=== PATIENT | male | born 1955 | race Caucasian/White ===

== ENCOUNTER 2020-05-02 12:31 | Emergency (ER) | payer OTHER, MEDICARE ==
[~2020-05-02] VITALS: Ht 162.6 cm; Wt 58.8 kg
[~2020-05-02 12:31] MED LIST: ONDA8TAB9 PO; PANT-47 PO
[2020-05-02 12:44] VITALS: BP 114/78
[2020-05-02] MEDS ORDERED: LIDOcaine 1% W/epiNEPHrine 1:200,000 10ml vial IJ ONE (12:50)
== END 2020-05-02 16:13 | disposition home or self-care (01) ==
LOC: ER 12:32
DX: S61.412A Laceration without foreign body of left hand, initial encounter (principal); I25.10 Atherosclerotic heart disease of native coronary artery without angina pectoris; E78.00 Pure hypercholesterolemia, unspecified; I10 Essential (primary) hypertension; Z95.0 Presence of cardiac pacemaker; Z95.5 Presence of coronary angioplasty implant and graft; Z88.0 Allergy status to penicillin; Z88.8 Allergy status to other drugs, medicaments and biological substances; Z79.899 Other long term (current) drug therapy; W22.8XXA Striking against or struck by other objects, initial encounter; Y93.89 Activity, other specified; Y92.89 Other specified places as the place of occurrence of the external cause; Y99.8 Other external cause status
CPT/HCPCS: 12002; 99282

== ENCOUNTER 2021-02-19 05:34 | Day surgery (SDC) | payer OTHER ==
[2021-02-10 14:32] LABS: BASOPHILS % (AUTO) 0.3 % (0-1); EOSINOPHILS # (AUTO) 0.2 X10'3 (0-0.9); EOSINOPHILS % (AUTO) 2.6 % (0-6); LYMPHOCYTES # (AUTO) 1.7 X10'3 (1.1-4.8); LYMPHOCYTES % (AUTO) 18.1 % (21-51); MEAN CORPUSCULAR HEMOGLOBIN 30.2 PG (27.0-31.0); MEAN CORPUSCULAR HGB CONC 33.8 g/dL (33.0-36.5); MEAN CORPUSCULAR VOLUME 89.5 FL (78-98); MEAN PLATELET VOLUME 7.6 FL (7.4-10.4); MONOCYTES # (AUTO) 0.6 X10'3 (0-0.9); PRE OP HEMATOCRIT 33.4 % (42.0-52.0); PRE OP HEMOGLOBIN 11.3 g/dL (14.0-17.9); PRE OP PLATELET COUNT 528 X10'3 (140-440); RED BLOOD COUNT 3.74 X10'6 (4.70-6.10); RED CELL DISTRIBUTION WIDTH 15.7 % (11.5-14.5)
[2021-02-10 14:43] LABS: ALBUMIN 2.5 G/DL (3.4-5.0); ALBUMIN/GLOBULIN RATIO 0.5 (1.1-1.5); ALKALINE PHOSPHATASE 108 IU/L (46-116); BLOOD UREA NITROGEN 9 MG/DL (7-18); BUN/CREATININE RATIO 8.7 (5.4-32.0); CALCIUM 8.9 MG/DL (8.5-10.1); CHLORIDE 102 MMOL/L (99-107); CREATININE 1.03 MG/DL (0.60-1.10); PRE OP ALT 21 U/L (30-65); PRE OP ANION GAP 8 (8-16); PRE OP AST 33 U/L (10-37); PRE OP BILIRUB, TOTAL 0.5 MG/DL (0.0-1.0); PRE OP GLUCOSE 96 MG/DL (70-104); PRE OP POTASSIUM 3.5 MMOL/L (3.4-5.1); PRE OP SODIUM 139 MMOL/L (135-145); TOTAL CARBON DIOXIDE 28.9 MMOL/L (24-32); TOTAL PROTEIN 7.1 G/DL (6.4-8.2); eGFR 72 ML/MIN
[~2021-02-19] VITALS: Ht 162.6 cm; Wt 53.1 kg
[~2021-02-19 05:34] MED LIST changes: +AMLO5TAB PO; +ASPI-101 PO; +ATOR40TA71 PO; +CAPT25TA3; +CARV6.253 PO; +CLOP75TA33 PO; +CYAN500T46 PO; +FENO145T26 PO; +MULT-1141 PO; -ONDA8TAB9 PO; -PANT-47 PO; +PANT20TA18 PO; +albuterol 2.5 MG/3 ML nebule NEB ONE; +cefazolin/dext.iso 2gm/50ml IV ONE; +famotidine 20mg tablet PO ONE; +ringers solution, lacted 1,000 ML IV SCH
[2021-02-19 06:00] VITALS: BP 125/77
[2021-02-19] MEDS ORDERED: BUPIVAcaine/PF 2.5mg/ml (0.25%) 10ml vial ONE (06:50)
[2021-02-19] MEDS ORDERED: fentaNYL/PF 50MCG/1 ML 2ML syringe ONE (08:01)
[2021-02-19] MEDS ORDERED: LIDOcaine 0.5% (5mg/ml) 50ml vial ONE ×2 (08:02→08:08)
[2021-02-19] MEDS ORDERED: midazolam 1 mg/ML 2ml injection ONE ×2 (08:02→08:03)
[2021-02-19 08:32] VITALS: BP 109/69
--- NOTE | 2021-02-19 08:32 | NUR ---
Received from OR via [facility] , accompanied by Anesthesiologist DUYEN and report given by Anesthesiolgist. PATIENT WITH 20G PIV IN LEFT HAND RUNNING LR AT 100. VSS. DENIES PAIN. + CAP REFILL TO ALL FINGERS. PWD. Addendum: 02/19/21 at 0842 by Bennie Harry RN, RN Amended: Links added.
[2021-02-19 08:40] VITALS: BP 105/71
--- NOTE | 2021-02-19 08:52 | NUR ---
ALL DISCHARGE CRITERIA HAS BEEN MET. VSS, PAIN AT A TOLERABLE LEVEL, ABLE TO SAFELY AMBULATE AND TRANSFER SELF. IV TAKEN OUT WITHOUT ANY COMPLICATIONS. ALL DISCHARGE INSTRUCTIONS COVERED WITH PATIENT AND ALL QUESTIONS ANSWERED. PATIENT TAKEN OUT VIA WHEELCHAIR TO PERSONAL VEHICLE WHERE FAMILY/FRIEND DROVE PATIENT HOME. TOOK PATIENT HOME Addendum: 02/19/21 at 0914 by Bennie Harry RN, RN Amended: Links added.
== END 2021-02-19 08:52 | disposition home or self-care (01) ==
LOC: PAS 05:34
PROVIDERS: ATTEND Orthopaedic Surgery Hand Surgery
DX: G56.01 Carpal tunnel syndrome, right upper limb (principal); E78.5 Hyperlipidemia, unspecified; I10 Essential (primary) hypertension; F17.210 Nicotine dependence, cigarettes, uncomplicated; J44.9 Chronic obstructive pulmonary disease, unspecified; I25.2 Old myocardial infarction; Z85.828 Personal history of other malignant neoplasm of skin; Z95.0 Presence of cardiac pacemaker; Z95.1 Presence of aortocoronary bypass graft; Z95.5 Presence of coronary angioplasty implant and graft; Z90.49 Acquired absence of other specified parts of digestive tract; Z20.822 Contact with and (suspected) exposure to COVID-19; Z79.01 Long term (current) use of anticoagulants; Z79.82 Long term (current) use of aspirin; Z79.899 Other long term (current) drug therapy; Z88.0 Allergy status to penicillin; Z98.890 Other specified postprocedural states
CPT/HCPCS: 29848; 36415; 80053; 82948; 85025; 87635; 93005; A6222; C9803; J0690; J2250; J3010; J3490; J7030; J7120; Z7506; Z7512; A4215; A7000

== ENCOUNTER 2021-04-16 05:21 | Day surgery (SDC) | payer OTHER ==
[2021-04-09 12:00] LABS: BASOPHILS % (AUTO) 0.7 % (0-1); EOSINOPHILS # (AUTO) 0.3 X10'3 (0-0.9); EOSINOPHILS % (AUTO) 5.3 % (0-6); LYMPHOCYTES % (AUTO) 35.7 % (21-51); MEAN CORPUSCULAR HEMOGLOBIN 32.1 PG (27.0-31.0); MEAN CORPUSCULAR HGB CONC 34.3 g/dL (33.0-36.5); MEAN CORPUSCULAR VOLUME 93.4 FL (78-98); MEAN PLATELET VOLUME 7.1 FL (7.4-10.4); MONOCYTES # (AUTO) 0.5 X10'3 (0-0.9); MONOCYTES % (AUTO) 9.6 % (2-12); NEUTROPHILS # (AUTO) 2.8 X10'3 (1.8-7.7); NEUTROPHILS % (AUTO) 48.7 % (42-75); PRE OP HEMATOCRIT 38.4 % (42.0-52.0); PRE OP HEMOGLOBIN 13.2 g/dL (14.0-17.9); PRE OP PLATELET COUNT 254 X10'3 (140-440); RED BLOOD COUNT 4.11 X10'6 (4.70-6.10); RED CELL DISTRIBUTION WIDTH 14.8 % (11.5-14.5)
[2021-04-09 12:28] LABS: BLOOD UREA NITROGEN 15 MG/DL (7-18); BUN/CREATININE RATIO 11.9 (5.4-32.0); CALCIUM 9.3 MG/DL (8.5-10.1); CHLORIDE 103 MMOL/L (99-107); CREATININE 1.26 MG/DL (0.60-1.10); PRE OP ANION GAP 6 (8-16); PRE OP GLUCOSE 96 MG/DL (70-104); PRE OP SODIUM 140 MMOL/L (135-145); TOTAL CARBON DIOXIDE 31.2 MMOL/L (24-32); eGFR 57 ML/MIN
[2021-04-09 12:29] LABS: ALBUMIN 3.8 G/DL (3.4-5.0); ALKALINE PHOSPHATASE 56 IU/L (46-116); PRE OP ALT 22 U/L (30-65); PRE OP AST 28 U/L (10-37); PRE OP BILIRUB, TOTAL 0.5 MG/DL (0.0-1.0); TOTAL PROTEIN 7.5 G/DL (6.4-8.2)
[~2021-04-16] VITALS: Ht 165.1 cm; Wt 56.0 kg
[2021-04-16] VITALS (7 sets, daily range): BP systolic 116–133; BP diastolic 65–86
[~2021-04-16 05:21] MED LIST changes: -albuterol 2.5 MG/3 ML nebule NEB ONE; -cefazolin/dext.iso 2gm/50ml IV ONE; -famotidine 20mg tablet PO ONE
[2021-04-16] MEDS ORDERED: DOCUMENT DATE & TIME OF BETA-BLOCKER PO ONE (05:30)
[2021-04-16] MEDS ORDERED: famotidine 20mg tablet PO ONE (05:30)
[2021-04-16] MEDS ORDERED: clindamycin-Cleocin 900mg/D5W 50 ML IV ONE (05:30)
[2021-04-16] MEDS ORDERED: clindamycin 600mg/D5W 50ml 50 ML IV ONE (06:00)
[2021-04-16] MEDS ORDERED: BUPIVAcaine/PF 2.5mg/ml (0.25%) 10ml vial ONE (06:43)
[2021-04-16] MEDS ORDERED: LIDOcaine 1% 30ml preserv. free vial ONE ×2 (06:43→07:18)
[2021-04-16] MEDS ORDERED: LIDOcaine 0.5% (5mg/ml) 50ml vial ONE (07:05)
[2021-04-16] MEDS ORDERED: labetalol 20mg/4ml (5mg/ml) syringe IV PRN (07:30)
[2021-04-16] MEDS ORDERED: ketorolac trometh. 30mg/ml inj. IV ONE (07:30)
[2021-04-16] MEDS ORDERED: proCHLORperazine 10 MG/2 ml inj IV PRN (07:30)
[2021-04-16] MEDS ORDERED: hydrALAZINE 20mg/ml inj. IV PRN (07:30)
[2021-04-16] MEDS ORDERED: acetaminophen 1,000mg/100ml IV 100 ML IV PRN (07:30)
[2021-04-16] MEDS ORDERED: meperidine/PF 25mg/ml syringe IV PRN ×3 (07:30)
[2021-04-16] MEDS ORDERED: ondansetron/PF 4mg/2ml inj IV PRN (07:30)
[2021-04-16] MEDS ORDERED: fentaNYL/PF 50MCG/1 ML 2ML syringe ONE (07:30)
[2021-04-16] MEDS ORDERED: midazolam 1 mg/ML 2ml injection ONE (07:30)
[2021-04-16] MEDS ORDERED: morphine 4 MG/ML inj SYRINge IV PRN (07:30)
[2021-04-16] MEDS ORDERED: morphine 2 MG/ML inj. syringe IV PRN (07:30)
[2021-04-16] MEDS ORDERED: ringers solution, lacted 1,000 ML IV SCH (07:30)
[2021-04-16] MEDS ORDERED: propofol inj 20 ML IV ONE (07:47)
--- NOTE | 2021-04-16 07:55 | NUR ---
Received from OR via [facility], accompanied by Anesthesiologist PAOLA and report given by Anesthesiolgist. NO CO PAIN, VSS. IV PATENT. LEFT HAND DSG CDI. MOVES FINGERS. BRISK CAP REFILL.ICE APPLIED.
--- NOTE | 2021-04-16 09:35 | NUR ---
dc to home. no pain. iv out. bandage continues cdi. vss. fingers move, warm, brisk cap refill. instructions given to , non weight bearing to car.
== END 2021-04-16 10:00 | disposition home or self-care (01) ==
LOC: PAS 05:21
PROVIDERS: ATTEND Orthopaedic Surgery Hand Surgery
DX: G56.02 Carpal tunnel syndrome, left upper limb (principal); I25.2 Old myocardial infarction; I10 Essential (primary) hypertension; J44.9 Chronic obstructive pulmonary disease, unspecified; I25.10 Atherosclerotic heart disease of native coronary artery without angina pectoris; K21.9 Gastro-esophageal reflux disease without esophagitis; F17.210 Nicotine dependence, cigarettes, uncomplicated; Z79.01 Long term (current) use of anticoagulants; Z79.899 Other long term (current) drug therapy; Z98.890 Other specified postprocedural states; Z88.0 Allergy status to penicillin; Z90.49 Acquired absence of other specified parts of digestive tract; Z95.1 Presence of aortocoronary bypass graft; Z95.5 Presence of coronary angioplasty implant and graft; Z95.0 Presence of cardiac pacemaker; Z85.828 Personal history of other malignant neoplasm of skin; Z20.822 Contact with and (suspected) exposure to COVID-19
CPT/HCPCS: 29848; 80053; 82948; 85025; J2250; J2704; J3010; J3490; J7030; J7120; U0003; U0005; Z7506; Z7512; A4215; A7000

== ENCOUNTER 2023-12-26 09:52 | Day surgery (SDC) | payer OTHER ==
[2023-12-22 12:37] LABS: BASOPHILS % (AUTO) 0.2 % (0-1); EOSINOPHILS % (AUTO) 0.2 % (0-6); HEMATOCRIT 38.8 % (42.0-52.0); HEMOGLOBIN 12.9 g/dl (14.0-17.9); LYMPHOCYTES % (AUTO) 8.1 % (21-51); MEAN CORPUSCULAR HEMOGLOBIN 29.8 PG (27.0-31.0); MEAN CORPUSCULAR HGB CONC 33.3 g/dL (33.0-36.5); MEAN CORPUSCULAR VOLUME 89.7 FL (78-98); MEAN PLATELET VOLUME 6.7 FL (7.4-10.4); MONOCYTES # (AUTO) 0.4 X10'3 (0-0.9); MONOCYTES % (AUTO) 3.7 % (2-12); NEUTROPHILS # (AUTO) 10.5 X10'3 (1.8-7.7); NEUTROPHILS % (AUTO) 87.8 % (42-75); PLATELET COUNT 223 X10'3 (140-440); RED BLOOD COUNT 4.33 X10'6 (4.70-6.10); RED CELL DISTRIBUTION WIDTH 17.6 % (11.5-14.5)
[2023-12-22 12:44] LABS: APTT 22 SECONDS (22-32); INR 1.3 INR; PROTHROMBIN TIME 13.5 SECONDS (9.0-12.0)
[2023-12-22 12:46] LABS: ALBUMIN 3.7 G/DL (3.4-5.0); ANION GAP 7 (8-16); BLOOD UREA NITROGEN 18 MG/DL (7-18); BUN/CREATININE RATIO 12.1 (10.0-20.0); CALCIUM 8.7 MG/DL (8.5-10.1); CHLORIDE 104 MMOL/L (99-107); CHOL/HDL RATIO 2.5 (0.00-4.99); CHOLESTEROL 146 MG/DL (0-200); CREATININE 1.49 MG/DL (0.60-1.10); GLUCOSE 126 MG/DL (70-104); HDL CHOLESTEROL 58 MG/DL (35-60); LDL CHOLESTEROL 65 MG/DL (50-100); POTASSIUM 3.3 MMOL/L (3.5-5.1); SODIUM 140 MMOL/L (135-145); TOTAL CARBON DIOXIDE 28.8 MMOL/L (24-32); TRIGLYCERIDES 124 MG/DL (20-135); eGFR 47 ML/MIN
[~2023-12-26] VITALS: Ht 162.6 cm; Wt 55.9 kg
[2023-12-26] VITALS (8 sets, daily range): BP systolic 116–174; BP diastolic 77–92; PULSE 60–65; RESP 16; TEMP 97.7; O2SAT 94–97
[~2023-12-26 09:52] MED LIST changes: -ringers solution, lacted 1,000 ML IV SCH
[2023-12-26] MEDS ORDERED: normal saline 1,000 ML IV SCH (10:40)
[2023-12-26] MEDS ORDERED: LORazepam 0.5 MG tablet PO PRN (10:40)
[2023-12-26] MEDS ORDERED: diphenhydrAMINE 25mg capsule PO PRN (10:40)
[2023-12-26] MEDS ORDERED: BACL10TA2 PO (10:47)
[2023-12-26] MEDS ORDERED: NITR0.4T SL (10:47)
[2023-12-26] MEDS ORDERED: HYDR-3973 PO (10:47)
[2023-12-26] MEDS ORDERED: PRED5TAB PO (10:47)
[2023-12-26] MEDS: diphenhydrAMINE 25mg capsule PO PRN (11:36)
[2023-12-26] MEDS: normal saline 1,000 ML IV SCH (11:36)
[2023-12-26] MEDS: LORazepam 0.5 MG tablet PO PRN (11:36)
[2023-12-26] MEDS ORDERED: midazolam 1 mg/ML 2ml injection ONE ×2 (12:19→13:16)
[2023-12-26] MEDS ORDERED: fentaNYL/PF 50MCG/1 ML 2ML syringe ONE (12:19)
[2023-12-26] MEDS ORDERED: LIDOcaine 1% 30ml preserv. free vial ONE (12:19)
[2023-12-26] MEDS ORDERED: iohexol 350MG/ML 100ml bottle IV ONE (12:20)
[2023-12-26] MEDS ORDERED: HYDROcodone/acetaminophen 5mg/325mg tablet PO PRN (14:10)
[2023-12-26] MEDS ORDERED: HYDROcodone/acetaminophen 10/325mg tab PO PRN (14:10)
== END 2023-12-26 15:45 | disposition home or self-care (01) ==
LOC: SSTAY O 09:52
PROVIDERS: ATTEND Internal Medicine Interventional Cardiology
DX: R07.89 Other chest pain (principal); I25.810 Atherosclerosis of coronary artery bypass graft(s) without angina pectoris; I25.10 Atherosclerotic heart disease of native coronary artery without angina pectoris; R94.31 Abnormal electrocardiogram [ECG] [EKG]; I25.2 Old myocardial infarction; I10 Essential (primary) hypertension; E78.00 Pure hypercholesterolemia, unspecified; J44.9 Chronic obstructive pulmonary disease, unspecified; F41.9 Anxiety disorder, unspecified; F32.A Depression, unspecified; I42.9 Cardiomyopathy, unspecified; Z79.02 Long term (current) use of antithrombotics/antiplatelets; Z79.82 Long term (current) use of aspirin; Z79.899 Other long term (current) drug therapy; Z95.1 Presence of aortocoronary bypass graft; Z95.810 Presence of automatic (implantable) cardiac defibrillator; Z88.0 Allergy status to penicillin; Z88.1 Allergy status to other antibiotic agents; Z88.5 Allergy status to narcotic agent; Z88.8 Allergy status to other drugs, medicaments and biological substances
CPT/HCPCS: 36415; 80048; 80061; 85025; 85610; 85730; 93005; 93459; 99152; J1644; J2250; J3010; J3490; J7030; Q0163; Q9967; 99153; A6258; C1760; C1769